=== PATIENT | male | born 1955 | race Caucasian/White ===

== ENCOUNTER → 2023-07-12 06:50 | Outpatient (CLI) | payer MEDICARE, SELFPAY ==
--- NOTE | ~2023-07-12 | MR_ITS ---
EXAMINATION: MR shoulder LT wo con DATE: 07/12/2023 07:29 INDICATION: Chronic left shoulder pain. TECHNIQUE: Magnetic resonance imaging (MRI) of the left shoulder was performed without intravenous co ntrast. COMPARISON: None. FINDINGS: Coracoacromial arch: The acromion undersurface is curved in morphology with anterior hook (type III). There is severe acro mioclavicular joint osteoarthritis including inferiorly directed osteophytes. There is mild subacromi al/subdeltoid bursitis. Rotator cuff: There are likely changes of rotator cuff repair. There is severe supraspinatus and infraspinatus tend inopathy. There is a partial thickness bursal sided tear of the conjoined portion of the tendon measu ring 2 mm anterior to posterior by 10 mm proximal to distal by 50% tendon thickness. Teres minor tend on is normal. There is severe subscapularis tendinopathy. There is mild fatty atrophy of supraspinatu s and infraspinatus muscle bellies. Biceps tendon and glenoid labrum: Biceps tendon is in bicipital groove. There is moderate intra-articular biceps tendinopathy. There is a tear of glenoid labrum from 10:00 to 12:00 (SLAP tear). There is degeneration of posterior glenoid labrum. Fluid: There is no glenohumeral joint effusion. Bones/cartilage: There is full-thickness cartilage loss of posterior superior humeral articular surface. There is shal low partial-thickness cartilage loss of glenoid. IMPRESSION: 1. Severe rotator cuff tendinopathy with bursal sided partial-thickness tear of the conjoined portion of supraspinatus and infraspinatus tendons. Changes of rotator cuff repair. 2. Moderate glenohumeral joint chondrosis. SLAP tear. 3. Severe acromioclavicular joint osteoarthritis. 4. Mild subacromial/subdeltoid bursitis. 5. Moderate intra-articular biceps tendinopathy. Reviewed, dictated and finalized at location E. ING MACHINE SETTER IMPRESSION: 1. Severe rotator cuff tendinopathy with bursal sided partial-thickness tear of the conjoined portion of supraspinatus and infraspinatus tendons. Changes of r otator cuff repair. 2. Moderate glenohumeral joint chondrosis. SLAP tear. 3. Severe acromioclavicular joint osteoarthritis. 4. Mild subacromial/subdeltoid bursitis. 5. Moderate intra-articular biceps tendinopathy.
== END ==
PROVIDERS: PCP Physician Assistant; Visit Provider Physician Assistant
DX: M25.512 Pain in left shoulder (principal); G89.29 Other chronic pain; M19.012 Primary osteoarthritis, left shoulder; M75.22 Bicipital tendinitis, left shoulder
CPT/HCPCS: 73221